=== PATIENT | male | born 1970 | race Caucasian/White ===

== ENCOUNTER 2024-06-08 07:48 | Emergency (ER) | payer BC, SELFPAY ==
[2024-06-08 07:56] VITALS: BP 154/95; PULSE 100; RESP 18; TEMP 36.5; O2SAT 96; BMI 30.6
--- NOTE | 2024-06-08 08:04 | XR_ITS ---
Examination: CT abdomen and pelvis without contrast. Coronal 3-D reconstructions. Sagittal 2-D reconstructions. Date and time of exam:June 08, 2024 0812 hours INDICATIONS: Generalized abdominal pain beginning this morning, history acute diverticulitis February 19, 2021 CTDI: vol (mGy): 12.3 DLP: (mGycm): 812 Technique: Axial images of the abdomen have been obtained, 3 mm slice thickness Intravenous contrast material has not been administered. Low dose protocols were performed. One or more of the following dose reduction techniques were used; automated exposure control, adjustment of the mA and/or KV according to patient size, use of iterative reconstruction technique. Findings: No focal liver or splenic lesions Contracted gallbladder No pancreatic or adrenal mass Mild bilateral renal parenchymal scar formation, no hydronephrosis or renal calculi Normal appendix Colonic diverticulosis, acute diverticulitis sigmoid colon no peridiverticular abscess No significant prostatomegaly Contracted urinary bladder Fat-containing inguinal hernias Moderate lumbar spondylosis IMPRESSION: Acute diverticulitis sigmoid colon, no peridiverticular abscess
[2024-06-08] MEDS: HYDROcodone/APAP 5/325 TABLET 1 TAB PO (08:21)
[2024-06-08] MEDS: METOCLOPRAMIDE 5 MG TABLET 10 MG PO (08:21)
[2024-06-08 08:32] LABS: Collection Type, Urine Clean Catch; Squamous Epithelial Cell,Urine 0 /hpf (0-5); WBC,Urine 0 /hpf (0-5)
[2024-06-08 08:34] LABS: Basophils % (Auto) 0 % (0-2.5); Eosinophils # (Auto) 0.1 Thou/mm3 (0.0-0.5); Eosinophils % (Auto) 1 % (0-10); Hematocrit 44.8 % (41.0-53.0); Hemoglobin 15.5 g/dL (13.5-16.0); Immature Granulocytes % (Auto) 0 % (0-0); Immature Granulocytes Auto 0.03 Thou/mm3 (0.00-0.00); Lymphocytes # (Auto) 1.1 Thou/mm3 (1.0-4.8); Lymphocytes % (Auto) 9 % (10-50); Mean Corpuscular HGB Conc 34.6 g/dl (31.0-37.0); Mean Corpuscular Hemoglobin 30.9 pg (25.0-35.0); Mean Corpuscular Volume 89 fL (80-100); Monocytes % (Auto) 9 % (0-12); Neutrophils # (Auto) 9.5 Thou/mm3 (1.8-7.7); Neutrophils % (Auto) 81 % (37-80); Nucleated Red Blood Cell % 0 /100 WBC (0); Platelet Count 202 Thou/mm3 (140-440); RDW Standard Deviation 42.9 fL (35.1-43.9); Red Blood Count 5.01 Miln/mm3 (4.50-5.90); White Blood Count 11.7 Thou/mm3 (3.8-10.6)
[2024-06-08 08:41] LABS: Bilirubin,Urine Negative (Negative); Blood,Urine Negative (Negative); Clarity,Urine Clear (Clear/Hazy); Color,Urine Lt-Yellow (Lt Yel-Yel); Culture Indicated,Urine Not Indicated; Glucose, Urine 4+ (Negative); Ketones,Urine Trace (Negative); Leukocyte Esterase,Urine Negative (Negative); Nitrite,Urine Negative (Negative); Protein,Urine Negative (Neg - Trace); RBC,Urine 1 /hpf (0-3); Specific Gravity,Urine 1.032 (1.001-1.035); Urobilinogen,Urine Negative mg/dL (0.0-1.0)
[2024-06-08 08:56] LABS: Alanine Aminotransferase 43 U/L (10-49); Albumin, Serum 5.2 gm/dL (3.5-5.0); Alkaline Phosphatase 66 U/L (46-116); Anion Gap 8 (7-16); Aspartate Amino Transferase 23 U/L (0-34); BUN/Creatinine Ratio 18 Ratio (12-20); Bilirubin,Total 0.9 mg/dL (0.3-1.2); Blood Urea Nitrogen 18 mg/dL (9-23); Calcium 10.1 mg/dL (8.3-10.6); Calcium (Corrected) 10.1 mg/dL (8.5-10.1); Carbon Dioxide 25.9 mMol/L (20.0-31.0); Chloride 101 mMol/L (98-107); Globulin 2.6 gm/dL (2.3-3.5); Glucose 180 mg/dL (74-106); Lipase 40 U/L (12-53); Osmolality,Calculated 277 (275-295); Sodium 135 mMol/L (136-145); Total Protein 7.8 gm/dL (5.7-8.2); eGFR > 60 See Note
[2024-06-08 09:07] LABS: Glucose Estimated Average 163 mg/dL (80-131); Hemoglobin A1C 7.3 % Hgb (4.8-6.0)
--- NOTE | 2024-06-08 10:06 | EDNOTE_ITS ---
ED Abdominal Pain RME/HPI General Chief Complaint: Abdominal Pain Stated complaint: ABD PAIN Time seen by provider: 06/08/24 07:57 Arrival date/time: 06/08/24 07:48 53-year-old male with history of diverticulitis presents to the emergency department complains of left lower quadrant abdominal pain patient ports no fever nausea or vomiting Limitations: no limitations Related Data Home Medications ?Medication ?Instructions ?Recorded ?Confirmed losartan 100 mg tablet 100 mg PO QDAY 07/03/19 07/21/23 metformin 1,000 mg tablet 1,000 mg PO BID 12/25/20 07/21/23 Previous Rx's ?Medication ?Instructions ?Recorded ciprofloxacin HCl 500 mg tablet 500 mg PO BID 7 days #14 tabs 06/08/24 hydrocodone 5 mg-acetaminophen 325 1 tab PO BID PRN pain #10 tabs 06/08/24 mg tablet metronidazole 500 mg tablet 500 mg PO TID 7 days #21 tabs 06/08/24 Allergies Allergy/AdvReac Type Severity Reaction Status Date / Time No Known Allergies Allergy Verified 07/21/23 14:20 Review of Systems Review of Systems Systems Reviewed: All systems reviewed, normal except as documented Constitutional Constitutional: Reports system reviewed and no additional complaints, except as documented, Denies fever(s) and Denies headache(s) Eyes Eyes: Reports system reviewed and no additional complaints, except as documented and Denies blurry vision ENT Ears, Nose, Mouth, and Throat: Reports system reviewed and no additional complaints, except as documented, Denies headache(s), Denies nasal congestion and Denies nasal discharge Cardiovascular Cardiovascular: Reports system reviewed and no additional complaints, except as documented, Denies chest pain and Denies dyspnea Respiratory Respiratory: Reports system reviewed and no additional complaints, except as documented, Denies chest congestion, Denies cough and Denies dyspnea Gastrointestinal Gastrointestinal: Reports system reviewed and no additional complaints, except as documented and Reports abdominal pain Integumentary/Breasts Skin/Breast: Reports system reviewed and no additional complaints, except as documented and Denies rash Neurologic Neurologic: Reports system reviewed and no additional complaints, except as documented, Reports as per HPI and Denies headache(s) Past Medical History Past Medical History NEUROLOGIC: Negative Neurological Disorders CARDIAC: Positive Cardiac Disorders, Hypercholesterolemia and Hypertension; Negative Congestive Heart Failure RESPIRATORY: Negative Chronic Obstructive Pulmonary Disease (COPD) or Asthma GASTROINTESTINAL: Positive Diverticulitis GENITOURINARY: Negative Renal Disease ENDOCRINE: Positive Diabetes Mellitus Type 2; Negative Diabetes Mellitus Type 1 HEMATOLOGIC: Negative Sickle Cell Disease Social History SMOKING STATUS: Never smoker 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) ED Exam General Limitations: Present no limitations General appearance: Present alert and in no apparent distress Head Head exam: Present atraumatic Eye Eye exam: Present normal appearance, PERRL and EOMI ENT ENT exam: Present normal exam, normal oropharynx and mucous membranes moist Neck Neck exam: Present normal inspection, full ROM and trachea midline Chest Chest inspection: Present normal inspection and symmetric chest wall rise Respiratory Respiratory exam: Present normal lung sounds bilaterally Cardiovascular Cardiovascular exam: Present regular rate, normal rhythm and normal heart sounds Abdominal Exam Abdominal exam: Present soft, tenderness and normal bowel sounds; Absent distention, guarding, rebound, rigidity or tenderness at McBurney's Point Abdominal tenderness: Present LLQ; Absent RUQ or RLQ Extremities Exam Extremities exam: Present normal inspection and full ROM Back Exam Back exam: Present normal inspection and full ROM Neurological Exam Neurological exam: Present alert, oriented X3 and CN II-XII intact Psychiatric Psychiatric exam: Present normal affect and normal mood Skin Skin exam: Present warm, dry, intact and normal color Course Quality Measures none Orders Category Date Time Status CT abdomen pelvis wo con Stat Exams 06/08/24 08:04 Completed A1C [Glycohemoglobin w (eAG)] Stat Lab 06/08/24 08:25 Completed CBC Stat Lab 06/08/24 08:25 Completed Comprehensive Metabolic Panel Stat Lab 06/08/24 08:25 Completed Lipase Stat Lab 06/08/24 08:25 Completed UA, C/S IF [Urinalysis, C/S if Indicated] Stat Lab 06/08/24 08:06 Completed HYDROcodone*/APAP 5/325 [[place] 5/325] Med 06/08/24 08:04 Discontinued 1 tab PO X1 ONE Lidocaine 1% 20 ml [Xylocaine 1% 20 ML] Med 06/08/24 10:06 Discontinued 2.1 ml INFL X1 ONE Metoclopramide [Reglan] Med 06/08/24 08:04 Discontinued 10 mg PO X1 ONE cefTRIAXone [Rocephin] Med 06/08/24 10:06 Discontinued 1,000 mg IM X1 ONE Vital Signs Vital signs: Vital Signs Temperature 97.7 F 06/08/24 07:56 Pulse Rate 100 06/08/24 07:56 Respiratory Rate 18 06/08/24 07:56 Blood Pressure 154/95 H 06/08/24 07:56 Pulse Oximetry (%) 96 06/08/24 07:56 Oxygen Delivery Method Room Air 06/08/24 07:56 O2 saturation 96% room air within normal limits Abdominal Pain MDM MDM Narrative MDM Narrative:: 53-year-old male with history of diverticulitis presents to the emergency department complains of left lower quadrant abdominal pain patient ports no fever nausea or vomiting On exam patient well-appearing patient does not appear ill or toxic patient does not appear ill or toxic in no acute distress On exam patient has mild tenderness left lower abdomen CT scan as well as lab work obtained CT scan consistent with diverticulitis patient given Rocephin here and discharged with antibiotics Patient discharged home in no distress to follow-up with primary care doctor in the next 24 to 48 hours and for any worsening symptoms to return to the ER immediately Patient data External records reviewed:: [facility] previous records Clinical information provided by:: patient Social determinants that could affect healthcare access:: none Patient has the following chronic illnesses:: Given How is presenting disease/condition affected by chronic disease/condition?: no chronic disease Evaluation data The following diagnostics were reviewed and interpreted by me:: lab results and radiology exam(s) Lab and/or radiology exams considered but not ordered:: Labs radiology obtained Interpretation Summary: Reviewed by me Medications / Prescriptions Medications or Prescriptions considered but not ordered:: Given Medication administrations:: Medication Administration History Discontinued Medications Hydrocodone Bitart/Acetaminophen (Hydrocodone/Apap 5/325 Tablet) 1 tab PO X1 ONE Stop: 06/08/24 08:05 Last Admin: 06/08/24 08:21 Dose: 1 tab Documented By: ARF Ceftriaxone Sodium (Ceftriaxone Sod Inj 1,000 Mg Vial) 1,000 mg IM X1 ONE Stop: 06/08/24 10:07 Last Admin: 06/08/24 10:33 Dose: 1,000 mg Documented By: ARF Lidocaine HCl (Lidocaine Hcl 1% 20 Ml Vial) 2.1 ml INFL X1 ONE Stop: 06/08/24 10:07 Last Admin: 06/08/24 10:33 Dose: 2.1 ml Documented By: ARF Metoclopramide HCl (Metoclopramide 5 Mg Tablet) 10 mg PO X1 ONE Stop: 06/08/24 08:05 Last Admin: 06/08/24 08:21 Dose: 10 mg Documented By: ARF Given Consultations Consultation(s) initiated? (list below): No Diagnosis Differential diagnosis abdominal pain: abdominal pain, acute appendicitis, gastroenteritis and pancreatitis Most likely diagnosis given after review of the tests above:: Abdominal pain Admission Indicated Admission indicated?: not indicated Admission Request Was there a request for admission?: No Disposition Plan Disposition Plan: Discharge Discharge Attestation Discharge Attestation: The patient and all family members were given an opportunity to ask questions and understood the discharge instructions. Discharge instructions specifically effects, indications for sooner follow up or return to the emergency department, and the expected course of current diagnosis. Patient condition: Stable Discharge Plan Plan Patient Disposition: HOME (Self Care) Disposition Comment: Stable Prescriptions/Referrals Prescriptions/Med Rec: New hydrocodone-acetaminophen 5-325 mg tablet 1 tab PO BID MDD 10 PRN (Reason: pain) Qty: 10 0RF metronidazole 500 mg tablet 500 mg PO TID 7 Days Qty: 21 0RF ciprofloxacin HCl 500 mg tablet 500 mg PO BID 7 Days Qty: 14 0RF No Action metformin 1,000 mg tablet 1,000 mg PO BID losartan 100 mg Tablet 100 mg PO QDAY Referrals: Toby Saba MD [Primary Care Provider] - In 1 week Problem List Clinical Impression: Diverticulitis Patient/Caregiver Discharge Instructions Education Materials: ED Diverticulitis Additional Instructions: Please follow up with your primary care doctor in the next 24-48hrs for any worsening symptoms return here immediately Print Language: Burundian Stand Alone Forms: Aminah Award Info., Patient Portal Info Letter ALEXA/PENELOPE Supervising Physician LUZ ELENA Supervising Physician: Dr ureña
[2024-06-08] MEDS: LIDOCAINE HCL 1% 20 ML VIAL 2.1 ML INFL (10:33)
[2024-06-08] MEDS: cefTRIAXone SOD INJ 1,000 MG VIAL 1000 MG IM (10:33)
== END 2024-06-08 10:34 | disposition home or self-care (01) ==
PROVIDERS: Nurse Practitioner Primary Care; Emergency Provider Emergency Medicine; PCP Family Medicine
DX: K57.32 Diverticulitis of large intestine without perforation or abscess without bleeding (principal)
CPT/HCPCS: 36415; 74176; 80053; 81001; 83036; 83690; 85025; 96372; 99284; J0696; J3490; A9270

== ENCOUNTER 2024-07-20 08:51 | Emergency (ER) | payer BC, SELFPAY ==
--- NOTE | 2024-07-20 08:59 | XR_ITS ---
Examination: PA lateral chest 2 views TECHNIQUE: Upright PA lateral chest 2 views Exam date and time: July 20, 2024 0929 hours Comparison April 22, 2021 INDICATIONS: Coughing congestion sore throat chills and fever today FINDINGS: Normal heart size. No lobar pneumonia No pulmonary edema The osseous structures are intact IMPRESSION: No pneumonia identified
--- NOTE | 2024-07-20 09:03 | PD.EDURI ---
Upper Respiratory Inf. RME/HPI General Chief Complaint: Flu Like Symptoms Stated Complaint: cough, congestion, sore throat, chills, fever Time Seen by Provider: 07/20/24 08:54 Arrival date/time: 07/20/24 08:51 RME / HPI RME / HPI Narrative: This section includes all my notes and documentations, including HPI, PE, and ED course.? Quinn Vizcaino MD HPI: 53 year old male presents to the ED for evaluation of fevers, body aches, cough, nasal congestion, sore throat, and feeling unwell beginning 4 days ago Thursday. Reports highest temperature at home was 100 point something . Denies any sick contacts. No other complaints reported. ROS: All negative except as documented in HPI. Physical Exam: General:? Alert and oriented.? Coughing noted. Eyes:? Conjunctivae and lids clear.? ENT:? No nasal congestion.??Pharynx normal. TM normal bilaterally. Neck:? Supple.? Heart:? RRR.? Lungs:? No respiratory distress.? Good air movement.? No rhonchi, wheezing, rales.?? Abdomen:? Soft and nontender.?? Legs:? No clubbing, cyanosis, edema.? Skin:? Warm and dry.?? Neuro:? Alert and oriented X 3.?? I reviewed all diagnostic test results. My interpretation of the chest x-ray is no pneumonia. Influenza positive. At this point, diagnoses include?Influenza. Prescribed Tamiflu and recommended supportive care. Based on my best medical judgment, made decision no further evaluation or treatment indicated at this time.? Patient understands and agrees to the discharge instructions customized and printed, see below. Discharge instructions from Dr. Vizcaino: --No physical exertion for 3 days to help rest your lungs. --No smoking and no exposure to smoking or pets or dust or cold air. --Tamiflu to kill the influenza germs. --Prednisone to help decrease inflammation of the lungs. --Ibuprofen 800 mg every 8 hours today and tomorrow.? Then as needed for fever or pain. --Tylenol with codeine for severe cough or pain.? ?Increase oral fluid.? We need extra fluid when we are sick.?? --See a private doctor next week if not better. --Seek immediate medical care with significant worsening or with any concerns. Quinn Vizcaino MD Related Data Home Medications ?Medication ?Instructions ?Recorded ?Confirmed losartan 100 mg tablet 100 mg PO QDAY 07/03/19 07/21/23 metformin 1,000 mg tablet 1,000 mg PO BID 12/25/20 07/21/23 Previous Rx's ?Medication ?Instructions ?Recorded hydrocodone 5 mg-acetaminophen 325 1 tab PO BID PRN pain #10 tabs 06/08/24 mg tablet acetaminophen 300 mg-codeine 30 mg 2 tab PO TID PRN pain #20 tabs 07/20/24 tablet oseltamivir 75 mg capsule (Tamiflu) 75 mg PO BID 5 days #10 caps 07/20/24 prednisone 20 mg tablet 40 mg PO BID 3 days #12 tabs 07/20/24 Allergies Allergy/AdvReac Type Severity Reaction Status Date / Time No Known Allergies Allergy Verified 07/20/24 08:52 Review of Systems Review of Systems Systems Reviewed: All systems reviewed, normal except as documented Past Medical History Past Medical History CARDIAC: Positive Cardiac Disorders, Hypercholesterolemia and Hypertension GASTROINTESTINAL: Positive Diverticulitis ENDOCRINE: Positive Diabetes Mellitus Type 2 Social History SMOKING STATUS: Former smoker 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) ED Exam Narrative Physical exam: As noted in HPI Course Quality Measures none Orders Category Date Time Status Bedside COVID-19 Antigen Test NOW Care 07/20/24 08:59 Completed Bedside Influenza A&B Antigen Test NOW Care 07/20/24 08:59 Completed XR chest 2V Stat Exams 07/20/24 08:59 Completed predniSONE Med 07/20/24 09:00 Discontinued 60 mg PO X1 ONE Vital Signs Vital signs: Vital Signs Temperature 97.5 F 07/20/24 09:05 Pulse Rate 81 07/20/24 09:05 Respiratory Rate 18 07/20/24 09:05 Blood Pressure 145/89 H 07/20/24 09:05 Pulse Oximetry (%) 96 07/20/24 09:05 Oxygen Delivery Method Room Air 07/20/24 09:05 Pulse ox is 96% on room air which is adequate. Upper Respiratory Infection MDM Narrative MDM Narrative:: Lia Burk am scribing for and in the presence of Dr. Vizcaino. Patient data External records reviewed:: [facility] previous records (I reviewed ED visit on 06/08/2024 ) Clinical information provided by:: patient Social determinants that could affect healthcare access:: none Patient has the following chronic illnesses:: HTN, DM, diverticulitis How is presenting disease/condition affected by chronic disease/condition?: uneffected by Evaluation data The following diagnostics were reviewed and interpreted by me:: lab results and radiology exam(s) Lab and/or radiology exams considered but not ordered:: None Interpretation Summary: Influenza Medications / Prescriptions Medications or Prescriptions considered but not ordered:: None Medication administrations:: Medication Administration History Discontinued Medications Prednisone (Prednisone 20 Mg Tablet) 60 mg PO X1 ONE Stop: 07/20/24 09:01 See above Consultations Consultation(s) initiated? (list below): No Diagnosis Upper Respiratory Differential Diagnosis: upper respiratory infection, sinusitis, viral infection, bronchitis, influenza, pharyngitis and other (covid, pneumonia) Most likely diagnosis given after review of the tests above:: Influenza Admission Indicated Admission indicated?: not indicated Explain why admission is indicated or not indicated:: Does not meet admission criteria Admission Request Was there a request for admission?: No Disposition Plan Disposition Plan: Discharge Discharge Attestation Discharge Attestation: The patient and all family members were given an opportunity to ask questions and understood the discharge instructions. Discharge instructions specifically effects, indications for sooner follow up or return to the emergency department, and the expected course of current diagnosis. Patient condition: Stable Discharge Plan Plan Patient Disposition: HOME (Self Care) Prescriptions/Referrals Prescriptions/Med Rec: New prednisone 20 mg tablet 40 mg PO BID 3 Days Qty: 12 0RF Taper: Prednisone Taper 20 mg DAILY for 2 Days and 0 Hour 10 mg DAILY for 2 Days and 0 Hour 5 mg DAILY for 7 Days and 0 Hour acetaminophen-codeine 300-30 mg tablet 2 tab PO TID MDD 6 PRN (Reason: pain) Qty: 20 0RF oseltamivir [Tamiflu] 75 mg capsule 75 mg PO BID 5 Days Qty: 10 0RF No Action metformin 1,000 mg tablet 1,000 mg PO BID losartan 100 mg Tablet 100 mg PO QDAY hydrocodone-acetaminophen 5-325 mg tablet 1 tab PO BID MDD 10 PRN (Reason: pain) Qty: 10 0RF Referrals: Jayant,Toby Y, MD [Primary Care Provider] - In 1 week Problem List Clinical Impression: Influenza Patient/Caregiver Discharge Instructions Discharge Activity: activity as tolerated Education Materials: ED Influenza (Adult) Additional Instructions: Discharge instructions from Dr. Vizcaino: --No physical exertion for 3 days to help rest your lungs. --No smoking and no exposure to smoking or pets or dust or cold air. --Tamiflu to kill the influenza germs. --Prednisone to help decrease inflammation of the lungs. --Ibuprofen 800 mg every 8 hours today and tomorrow.? Then as needed for fever or pain. --Tylenol with codeine for severe cough or pain.? ?Increase oral fluid.? We need extra fluid when we are sick.?? --See a private doctor next week if not better. --Seek immediate medical care with significant worsening or with any concerns. Print Language: Georgian Stand Alone Forms: Aminah Award Info., Patient Portal Info Letter
[2024-07-20 09:05] VITALS: BP 145/89; PULSE 81; RESP 18; TEMP 36.4; O2SAT 96
== END 2024-07-20 10:43 | disposition home or self-care (01) ==
PROVIDERS: Emergency Provider Emergency Medicine; PCP Family Medicine
DX: J11.1 Influenza due to unidentified influenza virus with other respiratory manifestations (principal); Z87.891 Personal history of nicotine dependence
CPT/HCPCS: 71046; 87400; 87811; 99283